=== PATIENT | male | born 1975 | race Two or more races ===

== ENCOUNTER 2024-10-05 17:48 | Emergency (ER) | payer MEDICAID ==
[~2024-10-05] VITALS: Ht 177.8 cm; Wt 69.9 kg
[2024-10-05] MEDS ORDERED: methylPREDNISolone SOD SUCC 125 MG/2ML VIAL ONE (18:59)
[2024-10-05] MEDS: methylPREDNISolone SOD SUCC 125 MG/2ML VIAL IV ONE (19:14)
[2024-10-05] MEDS ORDERED: PRED50TA PO (20:03)
[2024-10-05 20:45] VITALS: BP 124/84; TEMP 98.2; O2SAT 97
== END 2024-10-05 20:46 | disposition home or self-care (01) ==
LOC: ER 17:57
DX: T78.40XA Allergy, unspecified, initial encounter (principal); L50.0 Allergic urticaria; R11.10 Vomiting, unspecified; X58.XXXA Exposure to other specified factors, initial encounter
CPT/HCPCS: 99283; 96374; J2919; J7030